=== PATIENT | male | born 1975 | race Caucasian/White ===

== ENCOUNTER 2020-08-03 13:44 | Outpatient (CLI) | payer OTHER, SELFPAY | END 2020-08-03 13:45 | disposition home or self-care (01) | LOC: ANHCOVIDVC 13:44 | PROVIDERS: PCP Internal Medicine | DX: Z23 Encounter for immunization (principal) | CPT/HCPCS: 0001A; 91300 ==

== ENCOUNTER 2020-08-24 13:42 | Outpatient (CLI) | payer OTHER, SELFPAY | END 2020-08-24 13:43 | disposition home or self-care (01) | LOC: ANHCOVIDVC 13:42 | PROVIDERS: PCP Internal Medicine | DX: Z23 Encounter for immunization (principal) | CPT/HCPCS: 0002A; 91300 ==

== ENCOUNTER 2022-01-21 11:23 | Emergency (ER) | payer OTHER, SELFPAY ==
[2022-01-21 11:31] VITALS: BP 145/68; PULSE 66; RESP 16; TEMP 37.3; O2SAT 99
--- NOTE | 2022-01-21 11:32 | ED.URI ---
HPI - URI/Sore Throat General Chief Complaint: Upper Respiratory Infection Stated Complaint: sore throat Time Seen by Provider: 01/21/22 11:32 Source: patient Mode of arrival: ambulatory Limitations: no limitations History of Present Illness HPI Narrative: 46-year-old male presented for complaint of left ear fullness for about 3 days. Endorses [id number] sensation worsening over the past 2 days. Denies associated sinus pressure congestion, headache, fevers or chills. Endorses chronic intermittent tinnitus. He has not taken anything for symptoms. States he is traveling via airplane tomorrow and wanted evaluation. Related Data Allergies Allergy/AdvReac Type Severity Reaction Status Date / Time No Known Allergies Allergy Verified 08/25/21 08:37 Review of Systems Review of Systems: CONSTITUTIONAL: Denies malaise, chills, or fever. EYES: Denies visual changes, redness, or discharge. ENT: Denies rhinorrhea, congestion, sinus pain, and sore throat. Reports ear pain CARDIOVASCULAR: Denies chest pain, palpitations, or edema. RESPIRATORY: Denies cough or dyspnea. GASTROINTESTINAL: Denies abdominal pain, nausea, vomiting, diarrhea SKIN: Denies rash or itching. MUSCULOSKELETAL: Denies myalgia. NEUROLOGIC: Denies headache. All systems reviewed & are unremarkable except as noted in HPI and below PMFSH Past Medical History Medical History Bloody stools Inflamed seborrheic keratosis Intertrigo Major depressive disorder with single episode, in remission Medial epicondylitis, right elbow Orchitis and epididymitis Other and unspecified noninfectious gastroenteritis and colitis Vertigo Family History Family History Father Patient's father is in good health Sibling Patient's brother is in good health Mother Family history of diabetes mellitus in first degree relative Social History Social History Smoking status: Former smoker Second hand tobacco smoke exposure: No Smoking end date: 06/05/09 Alcohol intake: current Comments At time of signature, agree with nursing past medical, surgical, social and family history. There is no relevant family history pertinent to the presenting complaint Exam Narrative: GENERAL: Well-appearing, and in no acute distress. HEAD: Normocephalic EYES: conjunctivae clear ENT: Nares clear. Mucous membranes moist. TMs pearly castrejon with dull light reflex bilaterally, left ear with fluid levels, mild erythema; no tragal tenderness. Oropharynx not erythematous without lesions. CHEST: No respiratory distress, speaks in full sentences. HEART: Regular rate and rhythm. SKIN: Warm, dry, no rash. NEURO: Alert and oriented x3. PSYCH: Normal mood and affect Course Course Emergency Course: Patient is aware of diagnosis, understands and agrees to treatment plan. Anticipatory guidance given. Patient agrees to follow-up as directed and is aware of reasons to seek care at the emergency department. Portions of this record may have been created with voice recognition software Level of Care: Express Care Visit Vital Signs Vital signs: Vital Signs Temperature 99.2 F 01/21/22 11:31 Pulse Rate 66 01/21/22 11:31 Respiratory Rate 16 01/21/22 11:31 Blood Pressure 145/68 H 01/21/22 11:31 Pulse Oximetry 99 01/21/22 11:31 Oxygen Delivery Room Air 01/21/22 11:31 Temperature 99.2 F 01/21/22 11:31 Pulse Rate 66 01/21/22 11:31 Respiratory Rate 16 01/21/22 11:31 Blood Pressure 145/68 H 01/21/22 11:31 Pulse Oximetry 99 01/21/22 11:31 Oxygen Delivery Room Air 01/21/22 11:31 Reviewed MDM - URI/Sore Throat MDM Narrative Medical decision making narrative: Advised supportive measures for serous OM, abx given since pt is traveling tomorrow, reviewed signs/symptoms to go to the ER. Pt is appropr
== END 2022-01-21 11:55 | disposition home or self-care (01) ==
PROVIDERS: Emergency Provider Nurse Practitioner Family
DX: H65.02 Acute serous otitis media, left ear (principal); Z87.891 Personal history of nicotine dependence
CPT/HCPCS: 99213; G0463

== ENCOUNTER → 2022-02-14 12:07 | Outpatient (CLI) | payer OTHER, SELFPAY ==
--- NOTE | ~2022-02-14 | XR_ITS ---
EXAMINATION: [id number] INDICATION: Right-sided chest pain TECHNIQUE: PA view of the chest and 3 views of the right ribs were obtained. COMPARISON: None. FINDINGS: The lungs are free of acute opacities. No pleural effusion or pneumothorax. The cardiomedia stinal silhouette is normal. The visualized bones and soft tissues are unremarkable. No displaced ri b fracture is identified. IMPRESSION: 1. No acute cardiopulmonary abnormality or evidence of displaced rib fracture. Reviewed, dictated and finalized at location B.
== END ==
PROVIDERS: PCP Family Medicine; Visit Provider Family Medicine
DX: R07.81 Pleurodynia (principal)
CPT/HCPCS: 71101

== ENCOUNTER 2022-03-30 00:26 | Day surgery (SDC) | payer OTHER, SELFPAY ==
[2022-03-14 14:14] VITALS: BMI 47.8
[2022-03-30 10:16] VITALS: BP 149/82; PULSE 79; RESP 20; TEMP 36.3; O2SAT 99
[2022-03-30] MEDS: LACTATED RINGERS 1,000 ML 150 ML IV CONT (10:27)
--- NOTE | 2022-03-30 10:47 | P.PNAN_ITS ---
Anes - Initial Pre Proc Eval Procedure: Operation Date: 03/30/22 11:30 Proposed Procedures p Colonoscopy - Jose Enrique Wise MD Date/Time: 03/30/22 10:47 Surgeon: Jose Enrique Wise MD Pre Op Diagnosis: rectal bleed Patient Data Age: 46 Gender: M Height: 1.83 m Weight: 161.5 kg Last Vital Signs Temp 97.3 F L 03/30/22 10:16 Pulse 79 03/30/22 10:16 Resp 20 03/30/22 10:16 BP 149/82 H 03/30/22 10:16 Pulse Ox 99 03/30/22 10:16 O2 Del Method Room Air 03/30/22 10:16 Allergies Allergy/AdvReac Type Severity Reaction Status Date / Time No Known Allergies Allergy Verified 03/30/22 10:15 Home Medications Medication Instructions Recorded Confirmed Type No Home Medications 03/14/22 03/14/22 History Patient hx anesthesia problems: none Family hx anesthesia problems: none Results Review: All pre-operative results and documents have been reviewed as part of the pre- operative evaluation. [facility] Past Medical History Medical History Bloody stools Inflamed seborrheic keratosis Intertrigo Major depressive disorder with single episode, in remission Medial epicondylitis, right elbow Orchitis and epididymitis Other and unspecified noninfectious gastroenteritis and colitis Vertigo Family History Family History Father Patient's father is in good health Sibling Patient's brother is in good health Mother Family history of diabetes mellitus in first degree relative Social History Social History Smoking packs per day: 0.75 Smoking cigarettes per day: 15.0 Years smoked: 14 Smoking pack-years: 10.50 Smoking status: Former smoker Tobacco type: cigarettes Second hand tobacco smoke exposure: No Smoking end date: 06/05/09 Alcohol intake: current Drinks per week: 4 Substance use type: does not use Living arrangements: with family Spiritual care concerns: No Anes - Eval Final PreProcedure Day of Procedure 03/30/22 10:47 Patient weight: morbidly obese Heart: regular rate and rhythm Lungs: clear to auscultation Airway: Mallampati scale class III Neurological: alert and oriented Last oral intake: >/= 8 hours ASA classification: III Emergent: no Anesthetic plan: proceed Anesthesia type and monitoring: general GIVS and standard monitoring Results Review: All pre-operative results and documents have been reviewed as part of the pre- operative evaluation. Informed Consent: The patient's anesthetic plan and its attendant risks and benefits were discussed with the patient/family/POA. Questions were solicited and answers provided to the satisfaction of the patient/family/POA.
--- NOTE | 2022-03-30 11:07 | PM.HPGS ---
History of Present Illness History of Present Illness Consent: Risks, benefits, and alternatives have been discussed and questions answered. Patient agrees to proceed with procedure. Chief complaint: rectal bleed Narrative: Justin Mae is a 46 year old male here for first colonoscopy. Had one episode of hematochezia after constipation. Review of Systems Constitutional: Constitutional: Denies headache(s) and Denies weakness Eyes: Eyes: Denies blurry vision ENT: Reports Normal hearing present, Denies headache(s) and Denies neck pain Cardiovascular: Cardiovascular: Denies chest pain and Denies dyspnea Respiratory: Respiratory: Denies dyspnea Gastrointestinal: Gastrointestinal: Reports no additional gastrointestinal complaints Genitourinary: Genitourinary: Denies dysuria Musculoskeletal: Musculoskeletal: Denies neck pain Integumentary/Breasts: Skin/Breast: Denies dry skin Neurologic: Reports Normal hearing present, Denies headache(s) and Denies weakness Psychiatric: Psychiatric: Denies anxiety Endocrine: Endocrine: Denies change in body appearance Hematologic/Lymphatic: Hematologic/Lymphatic: Denies easy bleeding Allergic/Immunologic: Allergic/Immunologic: Denies urticaria PMFSH Past Medical History Medical History Bloody stools Inflamed seborrheic keratosis Intertrigo Major depressive disorder with single episode, in remission Medial epicondylitis, right elbow Orchitis and epididymitis Other and unspecified noninfectious gastroenteritis and colitis Vertigo Family History Family History Father Patient's father is in good health Sibling Patient's brother is in good health Mother Family history of diabetes mellitus in first degree relative Social History Social History Smoking packs per day: 0.75 Smoking cigarettes per day: 15.0 Years smoked: 14 Smoking pack-years: 10.50 Smoking status: Former smoker Tobacco type: cigarettes Second hand tobacco smoke exposure: No Smoking end date: 06/05/09 Alcohol intake: current Drinks per week: 4 Substance use type: does not use Living arrangements: with family Spiritual care concerns: No Meds Home Medications and Allergies Home Medications Medication Instructions Recorded Confirmed Type No Home Medications 03/14/22 03/14/22 History Allergies Allergy/AdvReac Type Severity Reaction Status Date / Time No Known Allergies Allergy Verified 03/30/22 10:15 Vital Signs Vital Signs - 24 hr 03/30/22 10:16 Temperature 97.3 F L Pulse Rate 79 Respiratory Rate 20 Blood Pressure 149/82 H Pulse Oximetry 99 Oxygen Delivery Room Air Exam Const: General: comfortable and no acute distress Other: obese HENMT: Face/Nose/Sinus: Normal nares present Eyes: General: appearance normal, both eyes and all related structures Neck: Neck: no JVD Resp: Auscultation: clear to auscultation bilaterally Cardio: Rate: regular rate Rhythm: regular rhythm GI: Inspection: non-distended GI Palp: Yes Soft to palpation Skin: General skin exam: normal color Neuro: General: gait normal Speech: normal speech Extrem: General: normal to inspection Psych: Mental Status: mental status grossly normal Assessment and Plan Assessment and plan (1) Bloody stools: Code(s): K92.1 - Melena Status: Inactive Assessment and Plan: probably perianal but will assess with colonoscopy
[2022-03-30 11:37] VITALS: BP 149/77; PULSE 97; RESP 28; O2SAT 99
[2022-03-30 11:47] VITALS: BP 139/91; PULSE 84; RESP 19; O2SAT 100
[2022-03-30 11:57] VITALS: BP 137/90; PULSE 72; RESP 20; O2SAT 99
== END 2022-03-30 12:07 | disposition home or self-care (01) ==
PROVIDERS: PCP Family Medicine; Visit Provider Internal Medicine Gastroenterology
PROC: 0DJD8ZZ Inspection of Lower Intestinal Tract, Via Natural or Artificial Opening Endoscopic (ICD-10-PCS; CPT 45378; principal; 2022-03-30 11:30)
DX: K92.1 Melena (principal); K64.8 Other hemorrhoids; Z87.891 Personal history of nicotine dependence; E66.01 Morbid (severe) obesity due to excess calories; Z68.42 Body mass index [BMI] 45.0-49.9, adult
CPT/HCPCS: 45378; J2704; J7120

== ENCOUNTER 2023-01-07 19:26 | Emergency (ER) | payer OTHER, SELFPAY ==
--- NOTE | 2023-01-07 19:33 | ED.GENADULT ---
HPI - General Adult General Chief complaint: Unspecified Stated complaint: Ear/Throat Pain Time Seen by Provider: 01/07/23 19:33 Source: patient Mode of arrival: ambulatory Limitations: no limitations History of Present Illness HPI narrative: 47-year-old male patient presents to the [facility] with complaints of left-sided lymph swelling for the past 2 days. Patient states he feels like it has gotten worse. Denies fevers, body aches or chills. Related Data Allergies Allergy/AdvReac Type Severity Reaction Status Date / Time No Known Allergies Allergy Verified 01/07/23 19:43 Review of Systems Review of Systems: CONSTITUTIONAL: Denies fever, chills, or sweats. EYES: Denies visual changes, redness, or discharge. ENT: Denies rhinorrhea, congestion, positive sore throat, or otalgia. CARDIOVASCULAR: Denies chest pain, palpitations, or edema. RESPIRATORY: Denies cough or dyspnea. GASTROINTESTINAL: Denies abdominal pain, nausea, vomiting, or diarrhea. GENITOURINARY: Denies dysuria or hematuria. SKIN: Denies rash or itching. MUSCULOSKELETAL: Denies back pain, joint pain, or myalgia. NEUROLOGIC: Denies headache, numbness, or weakness. PSYCHIATRIC: Denies anxiety or depression. [facility] Past Medical History Medical History Bloody stools Inflamed seborrheic keratosis Intertrigo Major depressive disorder with single episode, in remission Medial epicondylitis, right elbow Orchitis and epididymitis Other and unspecified noninfectious gastroenteritis and colitis Vertigo Family History Family History Father Patient's father is in good health Sibling Patient's brother is in good health Mother Family history of diabetes mellitus in first degree relative Social History Social History Smoking packs per day: 0.75 Smoking cigarettes per day: 15.0 Years smoked: 14 Smoking pack-years: 10.50 Smoking status: Former smoker Tobacco type: cigarettes Second hand tobacco smoke exposure: No Smoking end date: 06/05/09 Alcohol intake: current Drinks per week: 4 Substance use type: does not use Living arrangements: with family Spiritual care concerns: No Comments At the time of my signature I agree with nursing past medical history, surgical, social, and family history. There is no relevant family history pertinent to the presenting complaint. Exam Narrative: GENERAL: Well-appearing, well-nourished, and in no acute distress. HEAD: Normocephalic, atraumatic. EYES: PERRLA and EOMI. ENT: Nares clear, no rhinorrhea or epistaxis. Mucous membranes moist. NECK: Supple. No lymphadenopathy CHEST: Clear to auscultation. No respiratory distress. HEART: Regular rate and rhythm. No murmur heard. Normal peripheral pulses. ABDOMEN: Soft, nontender, nondistended, normal active bowel sounds. EXTREMITIES: Normal range of motion. No edema. SKIN: Warm, dry, no rash. NEURO: No focal deficits. Alert and oriented x3. Course Course Level of Care: Express Care Visit Vital Signs Vital signs: Vital Signs Temperature 37.0 C 01/07/23 19:40 Pulse Rate 74 01/07/23 19:40 Respiratory Rate 16 01/07/23 19:40 Blood Pressure 151/73 H 01/07/23 19:40 Pulse Oximetry 100 01/07/23 19:40 Oxygen Delivery Room Air 01/07/23 19:40 Temperature 37.0 C 01/07/23 19:40 Pulse Rate 74 01/07/23 19:40 Respiratory Rate 16 01/07/23 19:40 Blood Pressure 151/73 H 01/07/23 19:40 Pulse Oximetry 100 01/07/23 19:40 Oxygen Delivery Room Air 01/07/23 19:40 Vital signs reviewed. The patient has been informed that they may have pre-hypertension or Hypertension based on a BP reading in the department. I recommend that the patient call the primary care provider listed on their discharge instructions or a physician of their choice this week to arrange fol
[2023-01-07 19:40] VITALS: BP 151/73; PULSE 74; RESP 16; TEMP 37; O2SAT 100
== END 2023-01-07 19:58 | disposition home or self-care (01) ==
PROVIDERS: Emergency Provider Nurse Practitioner Family; PCP Family Medicine
DX: J02.0 Streptococcal pharyngitis (principal); Z87.891 Personal history of nicotine dependence
CPT/HCPCS: 87880; 99213; G0463

== ENCOUNTER 2023-05-01 11:35 | Outpatient (CLI) | payer OTHER, SELFPAY ==
[2023-05-01 12:35] LABS: Alanine Aminotransferase 43 U/L (6-50); Albumin Level 4.2 g/dL (3.5-5.1); Alkaline Phosphatase 82 U/L (38-126); Anion Gap 11 mmol/L (8-16); Aspartate Amino Transferase 41 U/L (17-59); Bilirubin,Total 0.6 mg/dL (0.2-1.3); Blood Urea Nitrogen 10 mg/dL (9-20); Calcium 9.1 mg/dL (8.4-10.2); Carbon Dioxide 26 mmol/L (22-30); Chloride 105 mmol/L (98-107); Cholesterol 166 mg/dL (0-200); Estimated Glomerular Filt Rate > 60; Glucose 106 mg/dL (65-110); HDL Direct 27 mg/dL; Potassium 3.5 mmol/L (3.4-5.0); Sodium 142 mmol/L (137-145); Triglycerides 105 mg/dL (<150)
[2023-05-01 12:46] LABS: LDL Cholesterol Direct 105 mg/dL
[2023-05-01 12:50] LABS: Hemoglobin A1C 5.8 % (<5.7)
== END 2023-05-01 11:36 | disposition home or self-care (01) ==
LOC: ANHGOSHLAB 11:36
PROVIDERS: PCP Family Medicine; Visit Provider Family Medicine
DX: Z13.228 Encounter for screening for other metabolic disorders (principal); R73.9 Hyperglycemia, unspecified; Z13.220 Encounter for screening for lipoid disorders
CPT/HCPCS: 36415; 80053; 80061; 83036

== ENCOUNTER 2023-10-11 10:45 | Emergency (ER) | payer OTHER, SELFPAY ==
--- NOTE | 2023-10-11 10:59 | ED.URI ---
HPI - URI/Sore Throat General Chief Complaint: Upper Respiratory Infection Stated Complaint: Sore Throat Time Seen by Provider: 10/11/23 11:05 Source: patient Mode of arrival: ambulatory Limitations: no limitations History of Present Illness HPI Narrative: Justin is a 48-year-old male patient presenting to the clinic today with complaints of sore throat x1 day. He denies any other symptoms. No known strep exposure. MD elicited complaint: sore throat Related Data Allergies Allergy/AdvReac Type Severity Reaction Status Date / Time No Known Allergies Allergy Verified 10/11/23 10:59 Review of Systems Review of Systems: Pertinent positives per HPI. Patient denies any fever, chills, rash, headache, visual changes, dizziness, cough, shortness of breath, chest pain, palpitations, nausea, vomiting, diarrhea, constipation, abdominal pain, or any urinary issues. [facility] Past Medical History Medical History (Updated 10/11/23 @ 11:11 by Rudy Mathis APRN) Bloody stools Inflamed seborrheic keratosis Intertrigo Major depressive disorder with single episode, in remission Medial epicondylitis, right elbow Orchitis and epididymitis Other and unspecified noninfectious gastroenteritis and colitis Vertigo Family History Family History Father Patient's father is in good health Sibling Patient's brother is in good health Mother Family history of diabetes mellitus in first degree relative Social History Social History Smoking packs per day: 0.75 Smoking cigarettes per day: 15.0 Years smoked: 14 Smoking pack-years: 10.50 Smoking status: Former smoker Tobacco type: cigarettes Second hand tobacco smoke exposure: No Smoking end date: 06/05/19 Alcohol intake: current Drinks per week: 7 Substance use: never Substance use type: does not use Lack of Transportation: No Lack of Food: Never True Current Housing: I Have Housing Concerned About Future Housing: No Difficulty Paying Gas/Electric Bills: No Difficulty Paying for Meds: No Currently Unemployed: No Education: High School Diploma/GED Difficulty w/ Childcare or Family Care: No Living arrangements: with family Spiritual care concerns: No Comments At the time of my signature, I reviewed and agree with the nursing past medical, surgical, social, and family history. There is no relevant family history pertinent to the patient complaint. Exam Narrative: General: Well-developed, well nourished, in no apparent distress Head: Normocephalic, atraumatic Eyes: Pupils equally round and reactive to light bilaterally, EOM intact, sclera and conjunctive clear, no discharge, lids normal Ears: TMs intact and clear, ear canals clear, no drainage, grossly hearing normal. Nose: Nares patent, no discharge, no inflammation, no sinus tenderness. Mouth: Oral pharynx without lesions or masses, good dentition, MMM. Neck: Supple, trachea midline, no enlargement of anterior or posterior cervical nodes, no thyroid masses or goiter palpable. Cardio: Regular rate and rhythm, s1 and s2 normal, no murmur appreciated. Resp: Clear to auscultation bilaterally, no rhonchi, rales, wheezing or rubs Course Course Emergency Course: Portions of this record may have been created with voice recognition software. Level of Care: Express Care Visit Vital Signs Vital signs: Vital signs reviewed MDM - URI/Sore Throat MDM Narrative Medical decision making narrative: At the time of visit patient is resting comfortably on the exam table. Patient appears to be nontoxic. Labs: Strep test was positive in the clinic today. Plan: Patient has acute strep pharyngitis. Prescription for amoxicillin was sent to the pharmacy. Work note was given. Supportive measures were discussed with the patient and they voiced understanding discharge ins
[2023-10-11 11:00] VITALS: BP 134/86; PULSE 70; RESP 16; TEMP 37.1; O2SAT 98
== END 2023-10-11 11:19 | disposition home or self-care (01) ==
PROVIDERS: Emergency Provider Nurse Practitioner Family; PCP Family Medicine
DX: J02.0 Streptococcal pharyngitis (principal); Z87.891 Personal history of nicotine dependence
CPT/HCPCS: 87880; 99213; G0463

== ENCOUNTER 2024-02-27 05:14 | Emergency (ER) | payer OTHER, SELFPAY ==
--- NOTE | ~2024-02-27 | XR_ITS ---
Portable chest x-ray Comparison: 02/24/2005 Clinical History: Chest pain Findings: Lungs are clear, without focal consolidation or pleural effusion. Cardiomediastinal silho uette is stable. Bones and soft tissues are unremarkable. Impression: Clear lungs. Reviewed, dictated and finalized at location . Impression: Clear lungs.
--- NOTE | 2024-02-27 05:14 | ECG_ITS ---
Test Date: 2024-02-27 05:24:28 Measurements Intervals Sully Rate: 94 P: 56 OR: 167 QRS: -6 QRSD: 102 T: 67 QT: 348 QTc: 436 Interpretive Statements SINUS RHYTHM LEFT VENTRICULAR HYPERTROPHY AND ST-T CHANGE MINIMAL Q WAVES- HIGH LATERAL LEADS BASELINE ARTIFACT- I, II, AVR, AVL BORDERLINE ECG No previous ECG available for comparison Electronically Signed On 02-27-2024 06:32:15 CDT by Mike Madrigal D.O.
[2024-02-27 05:18] VITALS: BP 138/92; PULSE 100; RESP 15; TEMP 36.8; O2SAT 100
[2024-02-27] MEDS: ASPIRIN 81 MG CHEWABLE TABLET 324 MG PO (05:32)
[2024-02-27 05:35] LABS: Basophils Percent Auto 0.3 % (0.2-1.2); Eosinophils Absolute Auto 0.2 K/mm3 (0-0.3); Eosinophils Percent Auto 2.4 % (0-4.4); Hematocrit 46.9 % (42.0-52.0); Hemoglobin 15.2 g/dL (14.0-18.0); Immature Granulocyte Absolute 0.03 K/mm3 (0.00-0.031); Immature Granulocyte Percent A 0.3 % (0-0.5); Lymphocytes Absolute Auto 2.17 K/mm3 (0.9-3.2); Lymphocytes Percent Auto 23.6 % (18.3-44.2); Mean Corpuscular HGB Conc 32.4 g/dl (32-36); Mean Corpuscular Hemoglobin 28.1 pg (26-34); Mean Corpuscular Volume 86.9 fl (80-100); Mean Platelet Volume 9.3 fl (7.4-10.4); Monocytes Absolute Auto 0.8 K/mm3 (0.1-0.6); Monocytes Percent Auto 8.2 % (2.6-8.5); Neutrophils Percent Auto 65.2 % (45.5-73.1); Platelet Count Result 239 k/mm3 (150-375); Red Cell Distribution Width 12.5 % (11.5-14.5); White Blood Count 9.2 K/mm3 (4.5-10.0)
[2024-02-27 05:49] LABS: INR 1.2; Partial Thromboplastin Time 28.6 Seconds (22.3-36.8)
[2024-02-27 06:00] LABS: Alanine Aminotransferase 25 U/L (6-50); Albumin Level 4.3 g/dL (3.5-5.1); Alkaline Phosphatase 100 U/L (38-126); Anion Gap 9 mmol/L (4-12); Aspartate Amino Transferase 25 U/L (17-59); Bilirubin,Total 0.8 mg/dL (0.2-1.3); Blood Urea Nitrogen 12 mg/dL (9-20); Calcium 9.2 mg/dL (8.4-10.2); Carbon Dioxide 26 mmol/L (22-30); Chloride 104 mmol/L (98-107); Estimated CRCL calculation 149 ml/min; Estimated Glomerular Filt Rate > 60; Glucose 109 mg/dL (65-110); Lipase 75 U/L (23-300); Potassium 3.3 mmol/L (3.4-5.0); Sodium 139 mmol/L (137-145)
[2024-02-27 06:11] LABS: Troponin I 0.015 ng/mL (0.000-0.034)
--- NOTE | 2024-02-27 06:35 | ED.CHESTPAIN ---
HPI - Chest Pain General Chief Complaint: Chest Pain Stated Complaint: Chest pain Time Seen by Provider: 02/27/24 05:16 History of Present Illness HPI narrative: Patient is a 48-year-old male who presents to the emergency department this morning complaining of substernal chest pain started approximately 3 days ago. Patient states that 2 days ago he had a very large dinner which is unusual for him as he has a very strict diet since he lost over 100 lb in the past 9 months. Patient states that the pain is worse when he lays flat or on his sides. Patient is concerned that he may have stretched his stomach which is what was causing the pain. Denies any shortness of breath, any cough or fevers or chills. Patient denies any history of cardiovascular disease. Admits history of GERD/acid reflux but states that he does not take anything for it since he has changed his diet and lifestyle. No additional symptoms or concerns at this time. Related Data Allergies Allergy/AdvReac Type Severity Reaction Status Date / Time No Known Allergies Allergy Verified 02/27/24 05:26 Review of Systems Review of Systems: All systems are reviewed and are negative unless stated otherwise in the HPI. [facility] Past Medical History Medical History Bloody stools Inflamed seborrheic keratosis Intertrigo Major depressive disorder with single episode, in remission Medial epicondylitis, right elbow Orchitis and epididymitis Other and unspecified noninfectious gastroenteritis and colitis Vertigo Family History Family History Father Patient's father is in good health Sibling Patient's brother is in good health Mother Family history of diabetes mellitus in first degree relative Social History Social History Smoking packs per day: 0.75 Smoking cigarettes per day: 15.0 Years smoked: 14 Smoking pack-years: 10.50 Smoking status: Former smoker Tobacco type: cigarettes Second hand tobacco smoke exposure: No Smoking end date: 06/05/19 Alcohol intake: current Drinks per week: 7 Substance use: never Substance use type: does not use Lack of Transportation: No Lack of Food: Never True Current Housing: I Have Housing Concerned About Future Housing: No Difficulty Paying Gas/Electric Bills: No Difficulty Paying for Meds: No Currently Unemployed: No Education: High School Diploma/GED Difficulty w/ Childcare or Family Care: No Living arrangements: with family Spiritual care concerns: No Exam Narrative: General: Alert, awake, afebrile, in no acute distress. HEENT: PERRL, no rhinorrhea, no post nasal drip, oropharynx clear. Cardiovascular: Regular rate and rhythm, no murmurs, rubs or gallops, no peripheral edema. Respiratory: Clear to auscultation bilaterally, no tachypnea, no wheezing, no rhonchi, no rubs, no respiratory distress. Abdomen: Soft, nontender, nondistended, no rebound, no guarding, no peritoneal signs. Musculoskeletal: No joint swelling or deformity, normal muscle tone. Skin: No rashes or petechia, no signs of infection. Neurological: Alert and oriented to person, place, and time. Follows all commands. No focal deficits, speech is clear and fluent. Course Vital Signs Vital signs: Vital Signs Temperature 98.3 F 02/27/24 05:18 Pulse Rate 100 02/27/24 05:18 Respiratory Rate 15 02/27/24 05:18 Blood Pressure 138/92 H 02/27/24 05:18 Pulse Oximetry 100 02/27/24 05:18 Oxygen Delivery Room Air 02/27/24 05:18 Temperature 97.6 F 02/27/24 06:44 Pulse Rate 80 02/27/24 06:44 Respiratory Rate 20 02/27/24 06:44 Blood Pressure 129/83 02/27/24 06:44 Pulse Oximetry 100 02/27/24 06:44 Oxygen Delivery Room Air 02/27/24 05:18 MDM - Chest Pain MDM Narrative Medical decision making narrative: The
[2024-02-27 06:44] VITALS: BP 129/83; PULSE 80; RESP 20; TEMP 36.4; O2SAT 100
[2024-02-27] MEDS: PANTOPRAZOLE SODIUM IV 40 MG VIAL IV PUSH (06:47)
[2024-02-27 07:03] VITALS: BP 142/90; PULSE 82; RESP 16; O2SAT 100
== END 2024-02-27 06:44 | disposition home or self-care (01) ==
PROVIDERS: Emergency Provider Emergency Medicine; PCP Family Medicine
DX: R07.89 Other chest pain (principal); K21.9 Gastro-esophageal reflux disease without esophagitis; F32.A Depression, unspecified
CPT/HCPCS: 36415; 71045; 80053; 83690; 84484; 85025; 85610; 85730; 93005; 96374; 99284; A9270; J2470

== ENCOUNTER 2024-04-09 08:59 | Outpatient (CLI) | payer OTHER, SELFPAY ==
--- NOTE | 2024-04-30 18:43 | P.SLEEP_ITS ---
Sleep Study - Home Unattended Date of Study: 04/09/24 Ordering Provider: Redd Akhtar DO Interpreting Provider: Sharon Ochoa DO Home Sleep Study Type: Watch PAT Height: 1.85 m Weight: 106.594 kg Body Mass Index: 30.9 Neck Circumference (inches): 17 [place]: 7 Reason for Sleep Study Daytime hypersomnia Sleep History The patient is a 48-year-old male that had a sleep study ordered by his primary care physician for re-evaluation of sleep apnea after the patient lost a significant amount of weight. The patient admits to excessive daytime sleepiness and trouble maintaining sleep. The patient denies snoring. He denies that he stops breathing during the night. He denies choking or gasping at night. He denies having trouble breathing on his back. He denies having morning headaches. He does admit to having a dry or sore mouth/ throat in the morning. He denies nocturnal heartburn. He denies nocturia. He denies having difficulty falling asleep. He denies having difficulty remaining asleep. He denies having difficulty returning to sleep if he wakes up during the night. He does wake up too early without alarm. He denies taking any hypnotics or sedatives. He denies feeling anxious about sleep. He does feel tired or fatigued during the day. He does feel an refreshed in the morning. He denies having the urge to fall asleep during the day. He denies feeling drowsy while driving. He denies sleep paralysis, cataplexy and hypnagogic / hypnopompic hallucinations. He denies clenching or grinding his teeth while asleep. He denies kicking or jerking his legs excessively at night. He denies having a restless feeling in his legs. He goes to bed at 4 a.m. on both work days and non-work days. It takes him 15 minutes to fall asleep. He typically gets 6 hours 15 minutes of sleep on work days and 6-1/2 hours of sleep on his days off. His sleep is not restorative on his days off. He denies taking any plan naps. He denies any dream enactment behavior. He denies sleep walking both as a child and an adult. He denies consuming any caffeinated beverages throughout the day. He denies tobacco and alcohol use. He exercises 34 nights per week. [facility] Past Medical History Medical History Bloody stools Inflamed seborrheic keratosis Intertrigo Major depressive disorder with single episode, in remission Medial epicondylitis, right elbow Orchitis and epididymitis Other and unspecified noninfectious gastroenteritis and colitis Vertigo Family History Family History Father Patient's father is in good health Sibling Patient's brother is in good health Mother Family history of diabetes mellitus in first degree relative Social History Social History Smoking packs per day: 0.75 Smoking cigarettes per day: 15.0 Years smoked: 14 Smoking pack-years: 10.50 Smoking status: Former smoker Tobacco type: cigarettes Second hand tobacco smoke exposure: No Smoking end date: 06/05/19 Alcohol intake: current Drinks per week: 7 Substance use: never Substance use type: does not use Lack of Transportation: No Lack of Food: Never True Current Housing: I Have Housing Concerned About Future Housing: No Difficulty Paying Gas/Electric Bills: No Difficulty Paying for Meds: No Currently Unemployed: No Education: High School Diploma/GED Difficulty w/ Childcare or Family Care: No Living arrangements: with family Spiritual care concerns: No Medications Home Medications Medication Instructions Recorded Confirmed Type zolpidem 10 mg tablet 10 mg PO ONCE PRN insomnia #4 tabs 02/26/24 Rx pantoprazole 40 mg tablet,delayed 40 mg PO HS #90 tabs 02/29/24 Rx release (Protonix) sildenafil (pulm.hypertension) 20 20 mg PO TID PRN sexual activity 04/08/24 Rx mg tablet #30 tabs phentermine 37.5 mg tablet 37.5 mg PO DAILY #21 tabs 04/09/24 Rx Sleep Procedure The sleep study was completed using [employer] a technically adequate device with seven channels: peripheral arterial tone, actigraphy, body position, snore, respiratory movement, pulse oximetry, sleep staging, and heart rate. Prior to using the device, the patient received verbal and written instructions for its application and was provided with the help desk phone number for additional telephonic instruction with 24-hour availability of qualified personnel to answer questions. The study was scored using CMS guidelines. Sleep Architecture The total recording time is 7 hrs, 23 min. The total sleep time is 6 hrs, 46 min. Sleep latency is 6 minutes. REM latency is 58 minutes. The patient had 3 episodes of waking. Sleep architecture shows 21.8% deep sleep, 51.4% light sleep, and (as % Total Sleep Time) showed NREM (Light 51.4%; Deep 21.8%), and a 26.8% stage REM. The patient spent 62.1% of total sleep time in the supine position. Sleep efficiency was 91.65. Respiratory Analysis The overall AHI (pAHI 4%:) is 8.7. The central AHI is 1.0. The AHI was 3.7 in NREM and 25.2 in REM sleep. The AHI was 11.3 in Supine and 0.8 in Non-supine sleep. Percent of Joe Sagastume respirations is 0.0. Oximetry Data The oxygen desaturation index (DANA 4%:) is 8.7. The mean saturation is 96%, and the lowest saturation is 76%. Time spent with saturation < 88% is 2.8 minutes. Snoring Profile Snoring average intensity is 41 dB. The patient snored above 45 decibels for 29.0 minutes, 7.1% of sleep time. Cardiac Profile The average pulse rate is 57 beats per minutes. The lowest pulse rate is 42 bpm. The highest pulse rate reported is 104 bpm. Atrial fibrillation was not detected. Premature beats occur <0.1 per minute. Assessment and Plan Assessment and Plan (1) Obstructive sleep apnea (adult) (pediatric): Code(s): G47.33 - Obstructive sleep apnea (adult) (pediatric) Status: Acute Assessment and Plan: The patient had an overall AHI of 8.7 with desaturation down to 76%. This is consistent with mild sleep apnea. The patient was previously diagnosed with sleep apnea and stopped using CPAP after losing a significant amount of weight and difficulty tolerating it. I recommend that the patient have a CPAP Titration study to determine optimal pressure settings. Data The data obtained during this sleep study is adequate for interpretation. Certification This sleep study has been reviewed by a board certified sleep medicine ph ysician.
[2024-04-30 20:49] VITALS: BMI 30.9
== END 2024-04-11 11:28 | disposition home or self-care (01) ==
LOC: ANHCSM 08:59
PROVIDERS: PCP Family Medicine; Visit Provider Family Medicine
DX: G47.33 Obstructive sleep apnea (adult) (pediatric) (principal)
CPT/HCPCS: 95800

== ENCOUNTER 2024-05-15 11:20 | Outpatient (CLI) | payer OTHER, SELFPAY ==
[2024-05-15 13:12] LABS: Alanine Aminotransferase 22 U/L (6-50); Alkaline Phosphatase 86 U/L (38-126); Anion Gap 1 mmol/L (4-12); Aspartate Amino Transferase 56 U/L (17-59); Bilirubin,Total 0.9 mg/dL (0.2-1.3); Blood Urea Nitrogen 15 mg/dL (9-20); Calcium 9.1 mg/dL (8.4-10.2); Carbon Dioxide 30 mmol/L (22-30); Chloride 107 mmol/L (98-107); Cholesterol 124 mg/dL (0-200); Estimated Glomerular Filt Rate > 60; Glucose 77 mg/dL (65-110); HDL Direct 25 mg/dL; Potassium 4.8 mmol/L (3.4-5.0); Sodium 138 mmol/L (137-145); Triglycerides 57 mg/dL (<150)
[2024-05-15 13:23] LABS: LDL Cholesterol Direct 69 mg/dL
== END 2024-05-15 11:21 | disposition home or self-care (01) ==
LOC: ANHGOSHLAB 11:21
PROVIDERS: PCP Family Medicine; Visit Provider Family Medicine
DX: Z13.220 Encounter for screening for lipoid disorders (principal); Z13.228 Encounter for screening for other metabolic disorders
CPT/HCPCS: 36415; 80053; 80061

== ENCOUNTER 2024-06-19 08:09 | Outpatient (CLI) | payer OTHER, SELFPAY ==
--- OUTSIDE RECORDS SUMMARY | 2024-06-26 19:12 | XMS_ITS | Encounter Summary ---
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
--- OUTSIDE RECORDS SUMMARY | 2024-06-26 19:12 | XMS_ITS | Referral Summary ---
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
--- OUTSIDE RECORDS SUMMARY | 2024-06-26 19:12 | XMS_ITS | Encounter Summary ---
Author Organization [facility] Address [address] [facility] [address] [place] [address] Care Team Providers Care Entry Level Automotive Technician Name Role Phone Andrea Quintero MD Primary Care Provider [phone] Reason for Visit * Cardiology (Routine) - Canceled Specialty Diagnoses / Procedures Referred By Contac t Referred To Contact Cardiology Imaging Diagnoses Palpitations Procedures 24 HR Holter Monitor Andrea Quintero MD Phone: tel: fax: [facility] Medical [facility] Cardiology [address] [place] [id number] Phone: tel: fax: Referral ID Status Reason Start Date Expiration Date V isits Requested Visits Authorized [id number] Canceled 05/20/2019 11/28/2020 1 1 Encounter Details Date Type Department Care Team (Late st Contact Info) Description 05/24/2019 2:00 PM DISTRICT WIRE CHIEF Ancillary Procedure [facility] Cardiology [address] [facility] [address] [place] [id number] Palpitations Social History Tobacco Use Types Packs/Day Years Used Date Smoking Tobacco: Never Assessed Sex and Gender Information Value Date Recorded Sex Assigned at Not on file Legal Sex Male 1:17 PM DISTRICT WIRE CHIEF Gender Identity Not on file Sexual Orientation Not on file documented as of this encounter Procedure Notes * Adrian Yap MD - 05/24/2019 12:00 AM CST Indication Palpitations. Ordering Physician Dr. Quintero. Interpretation This is a 24-hour Holter monitor in which underlying rhythm was sinus rhythm with a total of 198 premature ventricular contractions and 5 premature atrial contractions throughout the study. There were no prolonged pauses and/or high- grade AV blocks identified. CO and QRS duration were within normallimits throughout the study. Several patient symptom diary entries complained of heart skipping beats all of which were consistent with sinus rhythm without associated ectopy. There is no atrial fibrillation and/or atrial flutter. Conclusion Underlying sinus rhythm with an average heart rate of 68 beats per minute, minimum of 44 beats per minute at 4:49 a.m. and a maximum 122 beats per minute occurring at 6:09 p.m. Infrequent PVCs and rare PACs without atrial fibrillation or atrial flutter. Clinical correlation advised. Job ID/VF Job ID: [id number] RICT WIRE CHIEF documented in this encounter Plan of Treatment Pending Results Name Type Priority Associated Diagnoses Date /Time 24 HR Holter Monitor Cardiac Services Routine Palpitations 05/24/2019 2:06 PM DISTRICT WIRE CHIEF documented as of this encounter Visit Diagnoses Diagnosis Palpitations documented in this encounter Care Teams Entry Level Automotive Technician Relationship Specialty Start Date End Date Andrea Quintero MD [address] [place] [address] PCP - General Internal Medicine 05/20/19 documented as of this encounter
--- OUTSIDE RECORDS SUMMARY | 2024-06-26 19:12 | XMS_ITS | Clinical Summary ---
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
--- OUTSIDE RECORDS SUMMARY | 2024-06-26 19:12 | XMS_ITS | Encounter Summary ---
Author Organization [facility] Address [address] [place] [address]. [place], [place] [id number] [place] [address] Care Team Providers Care Turntable Operator Name Role Phone Unavailable Primary Care Provider Unavailabl e Encounter Details Date Type Department Care Team (Late st Contact Info) Description 03/20/2004 [facility] [address] [place] [address] , Kin Marshall MD Social History Tobacco Use Types Packs/Day Years Used Date Smoking Tobacco: Never Assessed Sex and Gender Information Value Date Recorded Sex Assigned at Not on file Legal Sex Male 5:07 PM CDT Gender Identity Not on file Sexual Orientation Not on file documented as of this encounter Plan of Treatment Not on file documented as of this encounter Visit Diagnoses Not on filedocumented in this encounter
--- OUTSIDE RECORDS SUMMARY | 2024-06-26 19:12 | XMS_ITS | Clinical Summary ---
Author Organization [facility] Address [address] [place] [address]. [place] [address] [place] [address] Care Team Providers Care Wood Buffer Name Role Phone Unavailable Primary Care Provider Unavailabl e Social History Tobacco Use Types Packs/Day Years Used Date Smoking Tobacco: Never Assessed Sex and Gender Information Value Date Recorded Sex Assigned at Not on file Legal Sex Male 5:07 PM CDT Gender Identity Not on file Sexual Orientation Not on file Plan of Treatment Health Maintenance Due Date Last Done Comments Colorectal Cancer Screening Colonoscopy (10 Years) 1977 Annual Physical 1980 Hepatitis C 08/15/1995 DTaP, Tdap and Td Vaccines ( 1 - Tdap) 1996 Hepatitis B Vaccines (1 of 3 - 19+ 3-dose series) 1996 COVID-19 Vaccine (2023-2 5 season) 2024 Influenza Adult (#1) 2024 Meningococcal Vaccine Aged Out No sathish romie eligible based on patient's age to complete this topic Pneumococcal Vaccine: Pediat rics (0 to 5 Years) and At-Risk Patients (6 to 64 Years) Aged Out No longer eligible b ased on patient's age to complete this topic RSV Immunizations Under 20 Months Aged Out No longer eligible based on patient's age to complete this topic
--- NOTE | 2024-07-08 17:52 | WPDSLEEPSTUD ---
Sleep Study Date of Study: 06/19/24 Ordering Provider: Redd Akhtar, DO Interpreting Physician: Sharon Ochoa DO Sleep Study Type: CPAP Titration Height: 1.83 m Weight: 98.43 kg Body Mass Index: 29.4 Neck Circumference (inches): 17 [place]: 7 Reason for Sleep Study The patient had a WatchPAT home study on 04/09/2024 that showed an overall AHI of 8.7 with desaturation down to 76%. Sleep History The patient is a 48-year-old male that had a sleep study ordered by his primary care physician for re-evaluation of sleep apnea after the patient lost a significant amount of weight. The patient admits to excessive daytime sleepiness and trouble maintaining sleep. The patient denies snoring. He denies that he stops breathing during the night. He denies choking or gasping at night. He denies having trouble breathing on his back. He denies having morning headaches. He does admit to having a dry or sore mouth/ throat in the morning. He denies nocturnal heartburn. He denies nocturia. He denies having difficulty falling asleep. He denies having difficulty remaining asleep. He denies having difficulty returning to sleep if he wakes up during the night. He does wake up too early without alarm. He denies taking any hypnotics or sedatives. He denies feeling anxious about sleep. He does feel tired or fatigued during the day. He does feel an refreshed in the morning. He denies having the urge to fall asleep during the day. He denies feeling drowsy while driving. He denies sleep paralysis, cataplexy and hypnagogic / hypnopompic hallucinations. He denies clenching or grinding his teeth while asleep. He denies kicking or jerking his legs excessively at night. He denies having a restless feeling in his legs. He goes to bed at 4 a.m. on both work days and non-work days. It takes him 15 minutes to fall asleep. He typically gets 6 hours 15 minutes of sleep on work days and 6-1/2 hours of sleep on his days off. His sleep is not restorative on his days off. He denies taking any plan naps. He denies any dream enactment behavior. He denies sleep walking both as a child and an adult. He denies consuming any caffeinated beverages throughout the day. He denies tobacco and alcohol use. He exercises 34 nights per week. [facility] Past Medical History Medical History Bloody stools Inflamed seborrheic keratosis Intertrigo Major depressive disorder with single episode, in remission Medial epicondylitis, right elbow Orchitis and epididymitis Other and unspecified noninfectious gastroenteritis and colitis Vertigo Family History Family History Father Malignant neoplasm of prostate Sibling Patient's brother is in good health Mother Family history of diabetes mellitus in first degree relative Social History Social History Social History: Caffeine-None Smoking packs per day: 0.75 Smoking cigarettes per day: 15.0 Years smoked: 14 Smoking pack-years: 10.50 Smoking status: Former smoker Tobacco type: cigarettes Second hand tobacco smoke exposure: No Smoking end date: 06/05/19 Alcohol intake: current Drinks per week: 7 Substance use: never Substance use type: does not use Do You Feel Safe in your Home?: Yes Lack of Transportation: No Lack of Food: Never True Current Housing: I Have Housing Concerned About Future Housing: No Difficulty Paying Gas/Electric Bills: No Difficulty Paying for Meds: No Currently Unemployed: No Education: High School Diploma/GED Difficulty w/ Childcare or Family Care: No Living arrangements: with family Spiritual care concerns: No Medications Home Medications ?Medication ?Instructions ?Recorded ?Confirmed ?Type zolpidem 10 mg tablet 10 mg PO ONCE PRN insomnia #4 tabs 02/26/24 06/12/24 Rx sildenafil (pulm.hypertension) 20 20 mg PO TID PRN sexual activity 04/08/24 06/12/24 Rx mg tablet #30 tabs phentermine 37.5 mg tablet 37.5 mg PO DAILY #30 tabs 06/27/24 Rx Sleep Procedure A full night CPAP Titration using the [employer] SleepBomberbot multi-channel system recorded the standard physiologic parameters including EEG, EOG, submentalis EMG, anterior tibialis EMG, EKG, body position, nasal and oral airflow using nasal pressure sensor and thermistor.? Respiratory parameters of chest and abdominal movements were recorded with Respiratory Inductance Plethysmography belts. Oxygen saturation was recorded by pulse oximetry. Video monitoring was also performed. Sleep stages, periodic limb movements, and EEG arousals were scored in 30 second epochs according to the criteria of the AASM Scoring Manual. The Apnea-Hypopnea Index was calculated using [facility] guidelines for definition of hypopnea with 4% O2 desaturations while scoring respiratory events. Sleep Architecture The total recording time was 420.5 minutes.? The total sleep time was 373.5 minutes. Sleep latency was 36.9 minutes. REM latency was 37.0 minutes. Sleep efficiency was 88.8%. The patient had 14 awakenings for an awakening index of 2.2. Wake after Sleep Onset time was 10.5 minutes. The patient spent 12.0 minutes, 3.2% of total sleep time in Stage N1. The patient spent 236.5 minutes, 63.3% in Stage N2. The patient spent 67.0 minutes, 17.9% in Stage N3. The patient spent 58.0 minutes, 15.5% in Stage REM. Respiratory Analysis The patient had 9 hypopneas for an overall Apnea Hypopnea Index of 1.4 events per hour. The REM Apnea Hypopnea Index was 5.2. The NREM Apnea Hypopnea Index was 0.8. The patient had a Central Apnea Hypopnea Index of 0. There was no evidence of Joe-Sagastume Respirations. The patient was started on CPAP 5 cm H2O and titrated to CPAP 10 cm H2O due to hypopneas. The patient was able to fall asleep starting on CPAP 5 cm H2O. The patient was able to achieve REM sleep on CPAP 5 cm H2O. The patient was able to achieve a residual AHI less than 5 with both NREM and REM sleep on the final two pressures. On CPAP 9 cm H2O, the patient spent 137.5 minutes in NREM and 15 minutes in REM with 8 hypopneas, resulting in an AHI of 3.1. On CPAP 10 cm H2O, the patient spent 57 minutes in NREM and 10 minutes in REM with 3 hypopneas, resulting in an AHI of 2.7. The patient had a sleep efficiency of 95.6% on 9 cm H2O and 98.5% on 10 cm H2O. Arousals There were 93 total arousals for an arousal index of 14.9. There were 37 spontaneous arousals for an index of 5.9. ?There were 11 arousals due to respiratory events for an index of 1.8. There were 3 arousals due to periodic limb movements for an index of 0.5.? There were 42 arousals due to isolated limb movements for an index of 6.7. Periodic Limb Movements The patient had 52 isolated limb movements with an index of 8.4. The patient had 4 periodic limb movements with index of 0.6. Patient had a total of 56 limb movements with a total limb movement index of 9.0. Oximetry Data The patient had an average oxygen saturation of 95.7% in sleep with a minimum oxygen saturation of 86.0% and a maximum oxygen saturation of 98.0%. The patient had 15 oxygen desaturations that were 4% or greater resulting in an Oxygen Desaturation Index of 2.4.? The patient spent 2.6 minutes, 0.6% of total sleep time with an oxygen saturation below 88%. Snoring Profile Mild snoring was present intermittently in the beginning of the study. The snoring resolved once the patient was titrated to CPAP 9 cm H2O. Cardiac Profile The EKG showed normal sinus rhythm. No arrhythmias or PVCs were seen. The patient had an average pulse rate of 55.9 bpm with a minimum pulse rate of 44.0 bpm and a maximum pulse rate of 96.0 bpm. ? EEG Profile No signs of seizure activity seen. Assessment and Plan Assessment and Plan (1) Obstructive sleep apnea (adult) (pediatric): Code(s): G47.33 - Obstructive sleep apnea (adult) (pediatric) Status: Acute Assessment and Plan: The patient was started on CPAP 5 cm H2O and titrated to CPAP 10 cm H2O due to hypopneas. The patient's sleep apnea resolved on the final pressure. I recommend that the patient be prescribed CPAP 10 cm H2O, size medium [employer] SOLO nasal mask, CPAP filters/tubing and heated humidity. This should be used with all episodes of sleep.? Compliance should be reviewed within 31-90 days of starting therapy for usage greater than 4 hours per night greater than 70% of the nights. The patient should be asked about symptoms such as?excessive daytime sleepiness, quality of sleep, decreased nocturia, increased?mental functioning such as memory, mood, and concentration. Data The data obtained during this sleep study is adequate for interpretation. Certification This sleep study has been reviewed by a board certified sleep medicine physician.
[2024-07-08 17:53] VITALS: BMI 29.4
== END 2024-06-20 07:06 | disposition home or self-care (01) ==
LOC: ANHCSM 08:10
PROVIDERS: PCP Family Medicine; Visit Provider Family Medicine
DX: G47.33 Obstructive sleep apnea (adult) (pediatric) (principal)
CPT/HCPCS: 95811

== ENCOUNTER 2024-07-11 11:32 | Outpatient (CLI) | payer OTHER, SELFPAY ==
--- OUTSIDE RECORDS SUMMARY | 2024-07-11 11:51 | XMS_ITS | Clinical Summary ---
Author Organization [facility] Address [facility] [place] [address] Care Team Providers Care Utility Spray Operator Name Role Phone Unavailable Primary Care [...] season) 2024 Influenza Adult (#1) 2024 Meningococcal B Vaccine Aged Out No l onger eligible based on patient's age to complete this topic Meningococcal Vaccine Aged Out No sathish romie [...]
--- OUTSIDE RECORDS SUMMARY | 2024-07-11 11:51 | XMS_ITS | Clinical Summary ---
Author Organization [facility] [place] [address] Address [address] [place] [address] Care Team Providers Care Registered Medical Transcriptionist Name Role Phone Andrea Quintero MD Primary Care Provider [phone] Social History Tobacco Use Types Packs/Day Years Used Date Smoking Tobacco: Never Assessed Personal Safety Answer Date Recorded Getting School Help Needed Not on file 08/19 Sex and Gender Information Value Date Recorded Sex Assigned at Not on file Legal Sex Male 1:17 PM [employer] Gender Identity Not on file Sexual Orientation Not on file Plan of Treatment Not on file Insurance [facility] HMO Care Teams Registered Medical Transcriptionist Relationship Specialty Start Date End Date Andrea Quintero MD [address] [place] [address] PCP - General Internal Medicine 05/20/19
--- OUTSIDE RECORDS SUMMARY | 2024-07-11 11:51 | XMS_ITS | Referral Summary ---
Author Organization [facility] [place] [address] Address [address] [place] [address] Care Team Providers Care Refrigeration Manager Name Role Phone Andrea Quintero MD Primary Care Provider [phone] Social History Tobacco Use Types Packs/Day Years Used Date Smoking Tobacco: Never Assessed Personal Safety Answer Date Recorded Getting School Help Needed Not on file 08/19 Sex and Gender Information Value Date Recorded Sex Assigned at Not on file Legal Sex Male 1:17 PM [employer]ET [employer] Gender Identity Not on file Sexual Orientation Not on file Plan of Treatment Not on file Insurance [facility] HMO Care Teams Refrigeration Manager Relationship Specialty Start Date End Date Andrea Quintero MD [address] [place] [address] PCP - General Internal Medicine 05/20/19
[2024-07-11 15:04] LABS: Hemoglobin A1C 5.2 % (<5.7)
== END 2024-07-11 11:33 | disposition home or self-care (01) ==
PROVIDERS: PCP Family Medicine; Visit Provider Family Medicine
DX: R73.03 Prediabetes (principal)
CPT/HCPCS: 36415; 83036